=== PATIENT | male | born 1980 | race Caucasian/White ===

== ENCOUNTER 2016-06-01 17:55 | Emergency (ER) | payer SELFPAY ==
[~2016-06-01] VITALS: Ht 182.9 cm; Wt 68.9 kg
[~2016-06-01 17:55] MED LIST: SUCR1TAB29 PO
--- OUTSIDE RECORDS SUMMARY | 2016-06-01 17:59 | XMS REPORT | Continuity of Care Document ---
Author Author [facility] Organization [facility] Address Unknown Phone Unavailable Allergies Active Description Code Type Severity Reaction Onset Reported/Identified Relationship to Patient Clinical Status Yes No Known Allergies NKMA N/A N/A 02/10/2014 Medications Problems Date Dx Coded Attending Type Code Diagnosis Diagnosed By 02/10/2014 Zeenat Arthur Admitting 276.2 02/14/2014 Zeenat Arthur Final 275.2 DISORDERS OF MAGNESIUM METABOLISM 02/14/2014 Zeenat Arthur Final 276.2 ACIDOSIS 02/14/2014 Zeeant Arthur Final 276.51 Dehydration 02/14/2014 Zeenat Arthur Final 276.8 HYPOPOTASSEMIA 02/14/2014 Zeenat Arthur Final 287.5 THROMBOCYTOPENIA, UNSPECIFIED 02/14/2014 Zeenat Arthur Final 303.00 ACUTE ALCOHOLIC INTOXICATION IN ALCOHOLISM , UNSPECIFIED DRINKING BEHAVIOR 02/14/2014 Zeenat Arthur Final 401.9 UNSPECIFIED ESSENTIAL HYPERTENSION 02/14/2014 Zeenat Arthur Final 785.0 TACHYCARDIA, UNSPECIFIED 02/14/2014 Zeenat Arthur Reason 786.50 UNSPECIFIED CHEST PAIN 02/14/2014 Zeenat Arthur Final 790.4 NONSPECIFIC ELEVATION OF LEVELS OF TRANSAMINASE OR LACTIC ACID DEHYDROGENAS 02/14/2014 Zeenat Arthur Final 791.6 ACETONURIA 02/14/2014 Zeenat Arthur Final V04.81 Need for prophylactic vaccination and inoculation against influenza 06/19/2014 Final 305.00 ALCOHOL ABUSE, UNSPECIFIED DRINKING BEHAVIOR 06/19/2014 Final 535.30 ALCOHOLIC GASTRITIS, WITHOUT MENTION OF HEMORRHAGE 06/19/2014 Final 787.01 NAUSEA WITH VOMITING 06/19/2014 Reason 789.00 ABDOMINAL PAIN, UNSPECIFIED SITE Procedures Results Encounters ACCT No. Visit Date/Time Discharge Status Pt. Type Provider Facility Loc./Unit Complaint [id number] 02/10/2014 09:23:00 2013 16:15:00 DIS Outpatient Zeenat Arthur [facility] [id number] 06/19/2014 01:32:00 Document Registration
[2016-06-01 18:00] VITALS: Ht 182.9 cm; Wt 68.9 kg
--- OUTSIDE RECORDS SUMMARY | 2016-06-01 18:00 | XMS REPORT | Referral Summary ---
Author Organization Unknown Address Unknown Phone Unavailable Care Team Providers Care Engineering Design Supervisor Name Role Phone No PCP, Pt States Primary Care Physician [phone] Encounter VC Date(s): 06/19/14 - 06/19/14 [facility] [address] [place] [address] Final: ALCOHOLIC GASTRITIS, WITHOUT MENTION OF HEMORRHAGE Final: ALCOHOL ABUSE, UNSPECIFIED DRINKING BEHAVIOR Final: NAUSEA WITH VOMITING Discharge Diagnosis: Chronic alcohol abuse Discharge Diagnosis: Vomiting Discharge Diagnosis: Abdominal pain Discharge Diagnosis: Alcoholic gastritis Discharge Disposition: Home or Self Care Attending Physician: Dwight Mc DO Admitting Physician: Dwight Mc DO Vital Signs Most recent to 1 oldest [Reference Range]: Temperature Oral 37.0 degC [35.8-37.3 degC] (06/19/14 1:48 AM) Peripheral Pulse 95 bpm Rate [60-100 bpm] (06/19/14 6:44 AM) Heart Rate Monitored 90 bpm [60-100 bpm] (06/19/14 6:00 AM) Respiratory Rate 12 br/min [14-20 br/min] *LOW* (06/19/14 6:00 AM) Blood Pressure 149/105 mmHg [90-140/60-90 mmHg] *HI* (06/19/14 6:44 AM) Mean Arterial 106 mmHg Pressure, Cuff (06/19/14 6:00 AM) Most recent to 1 oldest [Reference Range]: SpO2 98 % (06/19/14 6:44 AM) Problem List Condition Effective Dates Status Health Status Informant Acute Active pain(Confirmed) ETOH Active patient abuse(Confirmed) HTN Active patient (hypertension)(Confi rmed) Ineffective coping Active (individual)(Confirm ed)1 Pancreatitis(Confirm Active patient ed) Current every day Active patient smoker(Confirmed) 1Problem added automatically by system based on initiation of Ineffective Coping Plan of Care Allergies, Adverse Reactions, Alerts No Known Allergies Medications folic acid 1 mg oral tablet 1 tabs, Oral, Daily, # 30 tabs, 0 Refill(s) Start Date: 02/12/14 Status: Ordered Habitrol 21 mg/24 hr transdermal film, extended release 1 patches, TransDermal, Daily, 0 Refill(s) Start Date: 02/12/14 Status: Ordered Levsin 0.125 mg oral tablet 1 tabs, Oral, QID, # 10 tabs, 0 Refill(s), SUPERVISING PHYS. DR. MCLAUGHLIN Start Date: 06/19/14 Status: Ordered Norvasc 10 mg oral tablet 1 tabs, Oral, Daily, # 30 tabs, 0 Refill(s) Start Date: 02/12/14 Status: Ordered Patch Removal 1 patches, TransDermal, Once, 0 Refill(s) Start Date: 02/12/14 Status: Ordered PriLOSEC 10 mg oral delayed release capsule 1 caps, Oral, Daily, # 30 caps, 0 Refill(s), SUPERVISING PHYSJosy MCLAUGHLIN Start Date: 06/19/14 Status: Ordered Therapeutic Multiple Vitamins with Minerals oral tablet Oral, Daily, 0 Refill(s) Start Date: 02/12/14 Status: Ordered Zofran 4 mg oral tablet 1 tabs, Oral, Once, # 10 tabs, 0 Refill(s) Start Date: 06/19/14 Status: Ordered Results Hematology Most recent to 1 oldest [Reference Range]: WBC [4.8-10.8 K/uL] 4.2 K/uL *LOW* (06/19/14 4:48 AM) RBC [4.60-6.20 M/uL] 4.51 M/uL *LOW* (06/19/14 4:48 AM) Hgb [14.0-18.0 13.9 gm/dL gm/dL] *LOW* (06/19/14 4:48 AM) Hct [42.0-52.0 %] 39.7 % *LOW* (06/19/14 4:48 AM) MCV [82.0-99.0 fL] 88.0 fL (06/19/14 4:48 AM) MCH [27.0-32.0 pg] 30.8 pg (06/19/14 4:48 AM) MCHC [32.0-36.0 35.0 gm/dL gm/dL] (06/19/14 4:48 AM) RDW [11.5-14.5 %] 12.8 % (06/19/14 4:48 AM) Platelet [150-400 142 K/uL K/uL] *LOW* (06/19/14 4:48 AM) MPV [9.4-12.3 fL] 9.2 fL *LOW* (06/19/14 4:48 AM) Immature 0.0 % Granulocytes (06/19/14 4:48 AM) [0.0-1.0 %] Neutrophils [51-75 54 % %] (06/19/14 4:48 AM) Lymphocytes [20-46 38 % %] (06/19/14 4:48 AM) Monocytes [4-11 %] 8 % (06/19/14 4:48 AM) Eosinophils [0-4 %] 1 % (06/19/14 4:48 AM) Basophils [0-2 %] 1 % (06/19/14 4:48 AM) Neutro Absolute 2.25 THOUS [1.90-7.00 THOUS] (06/19/14 4:48 AM) Lymph Absolute 1.57 THOUS [0.80-3.30 THOUS] (06/19/14 4:48 AM) [place] Absolute 0.33 THOUS [0.30-1.00 THOUS] (06/19/14 4:48 AM) Eos Absolute 0.02 THOUS [0.00-0.50 THOUS] (06/19/14 4:48 AM) Baso Absolute 0.02 THOUS [0.00-0.20 THOUS] (06/19/14 4:48 AM) Nucleated RBC 0.0 /100 WBC Automated [0 /100 (06/19/14 4:48 AM) WBC] Chemistry Most recent to 1 oldest [Reference Range]: Sodium Lvl [136-144 135 mEq/L mEq/L] *LOW* (06/19/14 4:48 AM) Potassium Lvl 3.7 mEq/L [3.6-5.1 mEq/L] (06/19/14 4:48 AM) Chloride [99-109 95 mEq/L mEq/L] *LOW* (06/19/14 4:48 AM) CO2 [22-32 mEq/L] 23 mEq/L (06/19/14 4:48 AM) AGAP [3-20] 17 (06/19/14 4:48 AM) BUN [4-20 mg/dL] 9 mg/dL (06/19/14 4:48 AM) Glucose Lvl [70-100 76 mg/dL mg/dL] (06/19/14 4:48 AM) Creatinine Lvl 0.80 mg/dL [0.64-1.27 mg/dL] (06/19/14 4:48 AM) eGFR [>60] >60 2 (06/19/14 4:48 AM) Calcium Lvl 8.8 mg/dL [8.6-10.0 mg/dL] (06/19/14 4:48 AM) Albumin Lvl [3.5-4.8 4.3 gm/dL gm/dL] (06/19/14 4:48 AM) Total Protein 6.9 gm/dL [6.1-7.9 gm/dL] (06/19/14 4:48 AM) Globulin [1.9-4.3 2.6 gm/dL gm/dL] (06/19/14 4:48 AM) ALT [17-63 unit/L] 178 unit/L *HI* (06/19/14 4:48 AM) AST [15-41 unit/L] 141 unit/L *HI* (06/19/14 4:48 AM) Alk Phos [26-104 58 unit/L unit/L] (06/19/14 4:48 AM) Bili Total [0.2-1.2 2.1 mg/dL 1 mg/dL] *HI* (06/19/14 4:48 AM) Troponin [<0.06 <0.05 ng/mL ng/mL] (06/19/14 4:48 AM) Lipase Lvl [8-48 27 unit/L unit/L] (06/19/14 4:48 AM) 1Result Comment: Naproxen, specifically the metabolite O-desmethylnaproxen, may cause spurious elevation in Total Bilirubin levels. 2Result Comment: Multiply eGFR results by 1.21 for race. Immunizations Vaccine Date Refusal Reason influenza virus vaccine, inactivated 02/10/14 influenza virus vaccine, live 02/23/10 Procedures No data available for this section Social History Social History Type Response Smoking Status Current every day smoker; Tobacco use per day: 1 Pack Assessment and Plan No data available for this section
[2016-06-01] MEDS ORDERED: CHLORDIAZEPOXIDE 25 MG CAPSULE PO ONE (18:15)
[2016-06-01] MEDS ORDERED: THIAMINE 100 MG, FOLIC ACID 1 MG, MULTI-VIT INF, ADULT 10 ML in NORMAL SALINE 1,000 ML IV ONE ×4 (18:15)
--- OUTSIDE RECORDS SUMMARY | 2016-06-01 18:19 | XMS REPORT | Continuity of Care Document ---
Author Author [facility] Organization [facility] Address Unknown Phone Unavailable Allergies Active Description Code Type Severity Reaction Onset Reported/Identified Relationship to Patient Clinical Status Yes No Known Allergies NKMA N/A N/A 02/10/2014 Medications Problems Date Dx Coded Attending Type Code Diagnosis Diagnosed By 02/10/2014 Zeenat Arthur Admitting 276.2 02/14/2014 Zeenat Arthur Final 275.2 DISORDERS OF MAGNESIUM METABOLISM 02/14/2014 Zeenat Arthur Final 276.2 ACIDOSIS 02/14/2014 Zeenat Arthur Final 276.51 Dehydration 02/14/2014 Zeenat Arthur [...] Status Pt. Type Provider Facility Loc./Unit Complaint [id number] 02/10/2014 09:23:00 2013 16:15:00 DIS Outpatient Zeenat Arthur [facility] [id number] 06/19/2014 01:32:00 Document Registration
[2016-06-01 18:27] LABS: BLOOD, URINE 1+ (NEGATIVE); COLOR,URINE YELLOW (YELLOW); LEUKOCYTE ESTERASE ,URINE NEGATIVE (NEGATIVE); NITRITE,URINE NEGATIVE (NEGATIVE); UROBILINOGEN,URINE 0.2 EU/DL (NORMAL)
[2016-06-01 18:30] LABS: BASOPHILS % (AUTO) 0.4 % (0-2); EOSINOPHILS # (AUTO) 0.1 T/MM3 (0-0.5); EOSINOPHILS % (AUTO) 1.2 % (0-4); HCT - HEMATOCRIT 41.7 % (41-53); HGB - HEMOGLOBIN 14.6 GM/DL (13.5-17.5); IMMATURE GRANULOCYTE # (AUTO) 0.01 T/MM3 (0.00-0.03); IMMATURE GRANULOCYTE % (AUTO) 0.1 % (0.0-0.5); LYMPHOCYTES # (AUTO) 0.9 T/MM3 (1-4.8); LYMPHOCYTES % (AUTO) 11.1 % (23-45); MEAN CORPUSCULAR HGB 32.8 UUG (26-34); MEAN CORPUSCULAR VOLUME 93.7 UM3 (80-100); MEAN PLATELET VOLUME 10.7 UM3 (9.4-12.4); MONOCYTES # (AUTO) 1.8 T/MM3 (0-0.8); MONOCYTES % (AUTO) 23.2 % (0-9.0); NEUTROPHILS #(AUTO)-ABSOLUTE 4.9 T/MM3 (1.8-7.7); RED BLOOD COUNT 4.45 M/MM3 (4.50-5.90); WBC - WHITE BLOOD COUNT 7.7 T/MM3 (4.5-11.0)
[2016-06-01] MEDS ORDERED: TRAZ300T2 PO (18:30)
[2016-06-01] MEDS ORDERED: AMLO10TA4 PO ×2 (18:30→22:57)
--- NOTE | 2016-06-01 18:30 | NUR ---
FAMILY CONTACT PT'S MOTHER ARRIVED IN LOBBY, PT REFUSES TO ALLOW MOTHER TO COME BACK BUT DOES GIVE RN PERMISSION TO SPEAK WITH HER. MOTHER STATES PT HAS A HX OF AGGRESSION/IRRIATION/AND HALLUCINATIONS WITH WITHDRAWL FROM ALCOHOL. NO OTHER PMHX.
[2016-06-01 18:33] LABS: BACTERIA,URINE NONE SEEN (NEGATIVE); MUCUS,URINE PRESENT; RBC,URINE 0-1 /HPF (0-3); SQUAMOUS EPITHELIAL CELL,UR NONE SEEN; WBC,URINE 0-1 /HPF (0-5)
[2016-06-01 18:34] LABS: ACETAMINOPHEN < 10 UG/ML (10-30); AMPHETAMINE SCREEN,URINE NEGATIVE; ANION GAP 15 MEQ/L (5-15); BARBITURATE SCREEN,URINE NEGATIVE; BENZODIAZEPINES SCREEN,URINE NEGATIVE; BUN/CREATININE RATIO 20 RATIO (6-26); CALCIUM 11.1 MG/DL (8.4-10.2); CANNABINOID SCREEN,URINE POSITIVE; CHLORIDE 98 MEQ/L (98-107); CO2 - CARBON DIOXIDE 28 MEQ/L (22-30); COCAINE SCREEN,URINE NEGATIVE; CREATININE 0.7 MG/DL (0.8-1.5); ETHANOL <10 MG/DL (<10); GLOMERULAR FILTRATION RATE 128; GLUCOSE 102 MG/DL (75-110); MAGNESIUM 1.3 MG/DL (1.6-2.3); METHADONE SCREEN, URINE NEGATIVE; METHAMPHETAMINE SCREEN, URINE NEGATIVE; OPIATE SCREEN,URINE NEGATIVE; PHENCYCLIDINE SCREEN,URINE NEGATIVE; PHOSPHORUS 4.5 MG/DL (2.5-4.5); POTASSIUM 3.3 MEQ/L (3.6-5); SALICYLATE < 1.0 MG/DL (2-20); SODIUM 141 MEQ/L (134-144); TRICYCLIC ANTIDEPRESSANT,URINE NEGATIVE
[2016-06-01 18:43] LABS: LIPASE 88 U/L (23-300)
--- NOTE | 2016-06-01 19:04 | NUR ---
XRAY PT TO XRAY PER COT.
--- NOTE | 2016-06-01 19:04 | ERPDOC ---
Departure Disposition Decision Date: Jun 01, 2016 Disposition Decision Time: 20:04 () Disposition: 01 DISCHARGED HOME, SELF-CARE Impression Impression () Impression: Primary Impression: Alcohol withdrawal hallucinosis Additional Impressions: Hypertension Hypertension type: other secondary hypertension Qualified Codes: I15.8 - Other secondary hypertension Contusion Encounter type: initial encounter Contusion area: thoracic wall Contusion of thoracic wall detail: back wall of thorax Laterality: unspecified laterality Qualified Codes: S20.229A - Contusion of unspecified back wall of thorax, initial encounter Alcoholic hepatitis without ascites Marijuana abuse Alcohol abuse Severity: Moderate () Condition: Improved Seen By: Physician only () Referrals: [facility] 1 Day Patient Instructions: Alcohol Withdrawal (ED) Problems/Meds/Labs Reviewed?: Yes Medications reviewed and manag: Yes () Additional Instructions: You are having hallucinations related to your alcohol withdrawal. Take the ativan as needed to help with anxiety, trouble sleeping, or hallucinations ( voices when you close your eyes). Take the clonidine as needed for high blood pressure; continue to take your other medications as previously prescribed. Follow up with [facility] as soon as possible for re-evaluation and treatment if needed. Follow up care ordered?: Yes Mental Status: Alert, Oriented () Scripts Lorazepam (Lorazepam) 1 Mg Tablet 1 TAB PO BID for 10 Days, #20 TAB 0 Refills Prov: KATHY LYNN MD 06/02/16 HPI - General Medical General Chief Complaint: Psychiatric Problems Stated Complaint: ALCOHOL DETOX Time Seen by Provider: 18:02 Source: patient Exam Limitations: no limitations () Time Seen by Provider: 13:35 (KATHY LYNN MD) HPI - General Medical Initial Comments 36yo man presents to the ER tonight with auditory hallucinations. Pt is a chronic alcoholic who quit drinking 4 days ago () Allergies: Coded Allergies: clonidine (Verified Allergy, Intermediate, HIVES, 06/02/16) hydrocodone (Verified Allergy, Unknown, ITCHING, 06/01/16) Past History Past Medical History Psychological: alcohol abuse () Surgical History Denies Surgeries () Family History Family PMH: FOUND: diabetes ( DO) Physical Exam General Vitals and Pain First Documented Vital Signs Date Time Temp Pulse Resp B/P Pulse Ox O2 Delivery O2 Flow Rate FiO2 06/01/16 18:00 98.4 122 18 207/124 100 Room Air (KATHY LYNN MD) Vitals and Pain Weight: Kilograms: 68.900 Height (feet): 6 Height (inches): 0 Triage Pain Scale: ( DO) Progress Results/Orders Orders Procedure Category Date Status Time Bmp - Basic Metabolic LAB 06/01/16 Complete Panel 18:02 Cbc W/Auto LAB 06/01/16 Complete Diff-Reflex Manual 18:02 Ethanol LAB 06/01/16 Complete 18:02 Magnesium LAB 06/01/16 Complete 18:02 Phosphorus LAB 06/01/16 Complete 18:02 Drug Screen LAB 06/01/16 Complete Urine-Test At [facility] 18:02 Acetaminophen LAB 06/01/16 Complete 18:02 Salicylate LAB 06/01/16 Complete 18:02 Lipase LAB 06/01/16 Complete 18:02 Iv Lock (Ed Only) EDM 06/01/16 Transmitted 18:02 Thiamine (Vit. B1)... PHA 06/01/16 Complete 18:15 Chlordiazepoxide PHA 06/01/16 Complete (Librium) 18:15 Nothing By Mouth (Ed EDM 06/01/16 Transmitted Only) 18:02 UA, LAB 06/01/16 Complete Dip&Micro(Complete) & 18:19 INR LAB 06/01/16 Complete Ribs Left With Ap RAD 06/01/16 Resulted Chest Thoracic Spine Comp RAD 06/01/16 Resulted W/Obliques Lumbar Spine 2-3 Views RAD 06/01/16 Resulted Clonidine (Catapres) PHA 06/01/16 Complete 19:15 Hepatic Panel LAB 06/01/16 Complete Normal Saline (Normal PHA 06/01/16 Complete Saline Iv) 19:15 (KATHY LYNN MD) Lab Results Laboratory Tests Test 06/01/16 18:19 White Blood Count 7.7T/MM3 Red Blood Count 4.45M/MM3 Hemoglobin 14.6GM/DL Hematocrit 41.7% Mean Corpuscular Volume 93.7UM3 Mean Corpuscular Hemoglobin 32.8UUG Mean Corpuscular Hemoglobin Concent 35.0GM/DL RDW Standard Deviation 43.4FL Platelet Count 93T/MM3 Mean Platelet Volume 10.7UM3 Immature Granulocyte % (Auto) 0.1% Neutrophils (%) (Auto) 64.0% Lymphocytes (%) (Auto) 11.1% Monocytes (%) (Auto) 23.2% Eosinophils (%) (Auto) 1.2% Basophils (%) (Auto) 0.4% Absolute Immature Granulocyte (auto 0.01T/MM3 Absolute Neutrophils (auto) 4.9T/MM3 Absolute Lymphocytes (auto) 0.9T/MM3 Absolute Monocytes (auto) 1.8T/MM3 Absolute Eosinophils (auto) 0.1T/MM3 Absolute Basophils (auto) 0.0T/MM3 Prothromb Time International Ratio 1.09 Urine Collection Type Cleancatch-midstream Urine Color Yellow Urine Turbidity Clear Urine pH 7.0 Urine Specific [place] 1.020 Urine Protein 2+ Urine Glucose (UA) Negative Urine Ketones Trace Urine Blood 1+ Urine Nitrite Negative Urine Bilirubin Negative Urine Urobilinogen 0.2EU/DL Urine Leukocyte Esterase Negative Urine RBC 0-1/HPF Urine WBC 0-1/HPF Urine Squamous Epithelial Cells None seen Urine Bacteria None seen Urine Mucus Present Urine Culture Indicated Cult not indicated Turbidity < 20 Sodium Level 141MEQ/L Potassium Level 3.3MEQ/L Chloride Level 98MEQ/L Carbon Dioxide Level 28MEQ/L Anion Gap 15MEQ/L Blood Urea Nitrogen 14.0MG/DL Creatinine 0.7MG/DL Glomerular Filtration Rate Calc 128 BUN/Creatinine Ratio 20RATIO Glucose Level 102MG/DL Calculated Osmolality 272MOSM/KG Calcium Level 11.1MG/DL Phosphorus Level 4.5MG/DL Magnesium Level 1.3MG/DL Total Bilirubin 2.30MG/DL Conjugated Bilirubin 0.00MG/DL Unconjugated Bilirubin 1.60MG/DL Icterus Index < 2 Aspartate Amino Transf (AST/SGOT) 261U/L Alanine Aminotransferase (ALT/SGPT) 226U/L Alkaline Phosphatase 94U/L Total Protein 8.4G/DL Albumin 5.1G/DL Globulin 3.3G/DL Albumin/Globulin Ratio 1.5RATIO Lipase 88U/L Chemistry Specimen Hemolysis < 15 Salicylates Level < 1.0MG/DL Urine Opiates Screen NegativeNG/ML Urine Oxycodone Screen NegativeNG/ML Urine Methadone Screen NegativeNG/ML Urine Propoxyphene Screen NegativeNG/ML Acetaminophen Level < 10UG/ML Urine Barbiturates Screen NegativeNG/ML Urine Tricyclic Antidepressants NegativeNG/ML Urine Phencyclidine Screen NegativeNG/ML Urine Amphetamines Screen NegativeNG/ML Urine Methamphetamines Screen NegativeNG/ML Urine Benzodiazepines Screen NegativeNG/ML Urine Cocaine Screen NegativeNG/ML Urine Cannabinoids Screen PositiveNG/ML Urine Drug Screen Confirmation Sent out Urine Drug Screen Information Pending Alcohol, Quantitative <10MG/DL (KATHY LYNN MD) Medications Current ED Medications Thiamine HCl/ Folic Acid/ Multivitamins/ Minerals/Sodium Chloride (Vit. B1/ Folate/ M.v.i. Adult/ Normal Saline IV) 1,011.2 ml @ 0 mls/hr O ONCE IV Last administered on 06/01/16 18:24; Start 06/01/16 at 18:15; Stop 06/01/16 at 18:16; Status DC Chlordiazepoxide HCl (Librium) 100 mg O ONCE PO Last administered on 06/01/16 18:26; Start 06/01/16 at 18:15; Stop 06/01/16 at 18:16; Status DC Clonidine HCl 0.2 mg 0.2 mg O ONCE PO Last administered on 06/01/16 19:52; Start 06/01/16 at 19:15; Stop 06/01/16 at 19:16; Status DC Sodium Chloride (Normal Saline IV) 1,000 ml @ 0 mls/hr Q0M ONCE IV Last administered on 06/01/16 19:35; Start 06/01/16 at 19:15; Stop 06/01/16 at 19:16; Status DC (KATHY LYNN MD) Progress Progress The discharge instructions state that he was to be given both clonidine and Ativan at discharge and the nurses note says that she gave him the scripts. He had a reaction to the clonidine (occurred within minutes of getting this drug) and had a second ER visit yesterday related to that. At that time they tore up both scripts because they didn't know which he reacted to. The Ativan had been given several hours earlier without apparent reaction. He is continuing to have problems. Will re-write the lorazepam to be dispensed to the patient and they are to monitor for any reaction. (KATHY LYNN MD) Xray Xray #1: Xray: CXR Portable Interpretation: Normal, Interpreted by Me Xray #2: Xray: Ribs L Interpretation: Abnormal (Possible fx of 6th rib - sent for overread. Overread states no fx.), Interpreted by Me Xray #3: Xray: T-Spine Interpretation: Abnormal (Possible vertebral height loss at T2, T3 - old injury), Interpreted by Me Xray #4: Xray: L-Spine Interpretation: Abnormal (Spondylisthesis of L1 on L2), Interpreted by [place] (EMMETT PASTOR DO) EMMETT PASTOR DO Jun 01, 2016 19:04 KATHY LYNN MD Jun 02, 2016 13:45 KATHY LYNN MD Jun 02, 2016 13:45
[2016-06-01 19:08] LABS: INR 1.09 (0.76-1.04); PROTHROMBIN TIME 11.9 SEC (9.31-12.49)
[2016-06-01 19:13] LABS: ALBUMIN 5.1 G/DL (3.5-5.0); ALBUMIN/GLOBULIN RATIO 1.5 RATIO (1.1-2.2); ALKALINE PHOSPHATASE 94 U/L (38-126); ALT (SGPT) 226 U/L (21-72); AST (SGOT) 261 U/L (17-59); TOTAL PROTEIN 8.4 G/DL (6.3-8.2)
[2016-06-01] MEDS ORDERED: CLONIDINE 0.2 MG TABLET PO ONE (19:15)
[2016-06-01] MEDS ORDERED: NORMAL SALINE 1,000 ML IV ONE (19:15)
--- NOTE | 2016-06-01 19:24 | NUR ---
XRAY PT RETURNED FROM XRAY PER COT.
--- NOTE | 2016-06-01 19:45 | NUR ---
PT STATUS PT STATES HE IS FEELING MUCH BETTER, NO LONGER HEARING NOISES, ANXIETY HAS DECREASED AND HE FEELS ONCE RELEASED HE WILL BE ABLE TO SLEEP WELL. PT DENIES ANY FURTHER COMPLAINTS OR QUESTIONS AT THIS TIME.
[2016-06-01] MEDS ORDERED: LORA-204 PO (20:10)
[2016-06-01] MEDS ORDERED: CLON0.2T PO (20:10)
--- NOTE | 2016-06-01 20:10 | NUR ---
PT STATUS/FAMILY CONTACT PT IS SITTING UPRIGHT ON COT USING [facility] PHONE TO CALL FAMILY. PT INITIALLY SOUNDS UPSET BUT QUICKLY CALMS. PT STATES HE CALLED HIS MOTHER TO UPDATE HER AND SAY HE WAS SORRY FOR THE WAY HE HAS BEEN TREATING HER. PT IS VERY CALM AND COOPERATIVE AT THIS TIME. PT STATES HE IS FEELING GREAT AND READY TO GO HOME. PT'S BLOOD PRESSURE HAS DECREASED, PT STATING NOW THAT HE HAS BEEN TAKING NORVASC 10 MG DAILY FOR YEARS BUT HAS NOT TAKEN IT IN SEVERAL MONTHS. PT STATES HE WILL MAKE AN APPOINTMENT WITH [facility] THIS WEEK TO GET BACK ON DAILY HTN MEDICATIONS.
--- NOTE | 2016-06-01 20:19 | NUR ---
CALLED FOR TRANSPORT CALLED PT'S CONTACT NUMBER AND THEY STATE THEY WILL COME TO [facility] SHORTLY.
--- NOTE | 2016-06-01 20:26 | NUR ---
AMBULATION PT AMBULATES TO RESTROOM WITHOUT DIFFICULITES AND DENIES ANY DISCOMFORT WITH URINATION.
[2016-06-01 21:01] VITALS: BP 148/96; PULSE 82; RESP 15; TEMP 97.4; O2SAT 98
--- NOTE | 2016-06-01 21:01 | NUR ---
DISMISSAL PT IS RELEASED WITH DISMISSAL INSTRUCTIONS AND PRESCRIPTIONS. PT VERBALIZED UNDERSTANDING OF INSTRUCTIONS AND DENIES ANY QUESTIONS AT THIS TIME. PT IS AMBULATORY TO THE LOBBY AND MET BY MONIKA FROM [facility] WHO STATES SHE WILL GIVE PT A RIDE HOME AND MAKE SURE PRESCRIPTIONS ARE FILL TOMORROW MORNING.
[2016-06-01] MEDS ORDERED: PRED20TA PO (22:57)
--- NOTE | 2016-06-02 08:28 | DI ---
Indication: ITS.REASON: fall several days ago with low back pain PROCEDURE: LUMBAR SPINE 2-3 VIEWS: Encounter: Initial Comparison: None Findings: Alignment of the lumbar spine is within normal limits. No acute fracture or subluxation seen. The vertebral body heights are maintained. Minimal questionable disk space narrowing at L4-L5. The remaining disk spaces are normal. Impression: No acute osseous abnormality. .
--- NOTE | 2016-06-02 08:31 | DI ---
Indication: ITS.REASON: Fall several days ago with ongoing back pain PROCEDURE: THORACIC SPINE COMP W/OBLIQUES: Encounter: Initial Comparison: None Findings: Alignment of the thoracic spine is within normal limits. There is height loss within an upper thoracic vertebra, probably T5 of indeterminate age. The remaining thoracic body heights are maintained. No significant degenerative changes. Impression: Age-indeterminate compression fracture of T5. .
--- NOTE | 2016-06-02 08:36 | DI ---
Indication: ITS.REASON: Fall with left rib pain PROCEDURE: RIBS LEFT WITH AP CHEST: Encounter: Initial Comparison: None FINDINGS: Chest: The lungs are clear. There is no abnormal airspace opacity, pleural effusion or pneumothorax identified. The heart size, pulmonary vasculature and mediastinum are within normal limits. AP and oblique views of the left ribs: There is an irregular appearance of the left sixth lateral rib only seen on the oblique view with some overlapping lucency. This is not confirmed on any of the other views. IMPRESSION: No acute cardiopulmonary abnormality. Possible left sixth lateral rib fracture versus artifact. There is a preliminary report by [facility]. .
[2016-06-02] MEDS ORDERED: LORA1TAB3 PO (13:37)
== END 2016-06-01 21:01 | disposition home or self-care (01) ==
LOC: ED 17:55
DX: F10.239 Alcohol dependence with withdrawal, unspecified (principal); F10.251 Alcohol dependence with alcohol-induced psychotic disorder with hallucinations; K70.10 Alcoholic hepatitis without ascites; F12.10 Cannabis abuse, uncomplicated; Y90.9 Presence of alcohol in blood, level not specified; I15.8 Other secondary hypertension; S20.229A Contusion of unspecified back wall of thorax, initial encounter; X58.XXXA Exposure to other specified factors, initial encounter; Y93.9 Activity, unspecified; Y92.9 Unspecified place or not applicable; Y99.8 Other external cause status
CPT/HCPCS: 80048; 80076; 80306; 80307; 81001; 83690; 83735; 84100; 85025; 85610

== ENCOUNTER 2016-06-01 21:43 | Emergency (ER) | payer SELFPAY ==
[~2016-06-01] VITALS: Ht 182.9 cm; Wt 69.7 kg
[~2016-06-01 21:43] MED LIST changes: +AMLO10TA4 PO; +CLON0.2T PO; +LORA-204 PO; +TRAZ300T2 PO
[2016-06-01 21:46] VITALS: Ht 182.9 cm; Wt 69.7 kg
--- OUTSIDE RECORDS SUMMARY | 2016-06-01 21:46 | XMS REPORT | Continuity of Care Document ---
Author Author [facility] Organization [facility] Address Unknown Phone Unavailable Allergies Active Description [...] Status Pt. Type Provider Facility Loc./Unit Complaint [id number] 02/10/2014 09:23:00 2013 16:15:00 DIS [facility]at [facility] [id number] 06/19/2014 01:32:00 Document Registration
--- NOTE | 2016-06-01 21:50 | NUR ---
PROVIDER ELBA BEVERLY APRN IN ROOM WITH PT.
[2016-06-01] MEDS ORDERED: DiphenhydrAMINE 50 MG/ML INJECTION IV ONE (22:00)
--- OUTSIDE RECORDS SUMMARY | 2016-06-01 22:00 | XMS REPORT | Continuity of Care Document ---
Author Author [facility] Organization [facility] Address Unknown Phone Unavailable Allergies Active Description [...] Status Pt. Type Provider Facility Loc./Unit Complaint [id number] 02/10/2014 09:23:00 2013 16:15:00 DIS Outpatient Zeenat Arthur [facility] [id number] 06/19/2014 01:32:00 Document Registration
--- NOTE | 2016-06-01 22:04 | ERPDOC ---
Departure Disposition Decision Date: Jun 01, 2016 Disposition Decision Time: 22:54 Disposition: 01 DISCHARGED HOME, SELF-CARE Impression Impression Impression: Primary Impression: Allergic reaction Encounter type: initial encounter Qualified Codes: T78.40XA - Allergy, unspecified, initial encounter Severity: Moderate Condition: Stable Seen By: Mid-level only Patient Instructions: General Allergic Reaction (ED) Problems/Meds/Labs Reviewed?: Yes Medications reviewed and manag: Yes Additional Instructions: Take the Prednisone as prescribed to help with the hives. I do want you to take some Benadryl every 6 hours as needed for the itching and hives. The rash may come and go in intensity over the next few days but return to ER with any shortness of breath, sore throat, or difficulty swallowing/breathing. Follow up with [facility] this week for reevaluation. Follow up care ordered?: Yes Mental Status: Alert Scripts Prednisone (Prednisone) 20 Mg Tablet 20 MG PO PER COMMENTS, #15 TAB 0 Refills Take 3 tablets by mouth for 2 days, then 2 tablets by mouth daily for 3 days, then 1 tablet by mouth daily for 3 days then stop. Prov: VALENTE BEVERLY APRN 06/01/16 Amlodipine Besylate (Norvasc) 10 Mg Tablet 10 MG PO DAILY, #7 TAB 0 Refills Prov: VALENTE BEVERLY APRN 06/01/16 HPI - General Medical General Stated Complaint: RASH/DIZZY/WEAK Time Seen by Provider: 21:50 Source: patient Exam Limitations: no limitations HPI - General Medical Initial Comments He was evaluated in ER earlier today for alcohol withdrawal and auditory hallucinations. Was noted to be hypertensive and was given a dose of Catapress here in ER. Was also given a banana bag as well as Librium po. Was sent home with Rx for Ativan and Catapress. He had not filled the Ativan however yet as the pharmacies were closed when he was discharged. [facility] and noted that he has hives on his arms and chest and back. He has not had any sore throat or wheezing or SOA. Has not had any ETOH since the weekend. Occurred At: home Onset: Rapid Duration: 1 hr Severity: moderate Associated Symptoms: rash (on bilateral arms and chest), DENIES: chest pain, cough, diaphoresis, fever/chills, headaches, loss of appetite, malaise, nausea/ vomiting, seizure, shortness of breath, syncope, weakness Hx of Similar Symptoms: No Allergies: Coded Allergies: hydrocodone (Verified Allergy, Unknown, ITCHING, 06/01/16) Past History Past Medical History Psychological: alcohol abuse Surgical History Denies Surgeries Family History Family PMH: FOUND: diabetes Social History Smoking Status: Never smoker Substance Use Type: does not use Alcohol Intake: none Review of Systems Constitutional Constitutional: DENIES: chills, dizziness, fatigue, fever, weakness Cardiovascular Cardiac: DENIES: chest pain, orthopnea Rhythm/Rate: DENIES: irregular beat, palpitations Pulmonary Respiratory: DENIES: cough, dyspnea, tachypnea GI Upper Abdomen: DENIES: nausea, pain, vomiting Lower Abdomen: DENIES: constipation, diarrhea, pain General: DENIES: dysuria, frequency, urgency Integumentary Skin: rash Neurological General: DENIES: headache, numbness, tingling, weakness Physical Exam General General Nourishment: well nourished, well developed, appears stated age, no acute distress, adult General Body Habitus: well groomed Vitals and Pain First Documented Vital Signs Date Time Temp Pulse Resp B/P Pulse Ox O2 Delivery O2 Flow Rate FiO2 06/01/16 21:46 98.9 118 18 171/118 100 06/01/16 21:46 Room Air Weight: Kilograms: Height (feet): 6 Height (inches): 0 Triage Pain Scale: RN VS reviewed by Provider: Yes Normal Exams: Neck: Full range of motion, without adenopathy, JVD, bruits or thyromegaly Chest/Resp: Clear all milian, with good airflow, and symmetry bilaterally CV: Regular rate and rhythm, without murmur or gallop, Pulses 2+ all extremities, capillary refill, <2 seconds all ext., no pedal edema noted Abdomen: Bowel sounds positive, soft, non-tender, non-distended, no hepatosplenomegaly, masses or bruits noted Lymphatic: No lymphadenopathy, or lymphedema noted Neurologic: Patient is alert, and oriented Psychiatric: Patient exhibits, appropriate attention, emotion and affect ENMT (brief) ENMT Brief: FOUND: TM clear, TM good light reflex, ear canals clear, mucosa moist, normal dentition, normal tonsils, other (No swelling noted in posterior pharynx), NOT FOUND: lesions, nasal erythema, nasal exudate, nasal swelling, petechiae, pharnyx erythema, tonsillar deviation Respiratory (brief) Respiratory: NOT FOUND: wheezes Integumentary (brief) Integumentary Brief: FOUND: rash (He does have hives on his bilateral arms, chest, and back) Differential Diagnoses Considering: Other (anaphylaxis, allergic reaction, urticaria) Progress Results/Orders Orders Procedure Category Date Status Time Iv Lock (Ed Only) EDM 06/01/16 Transmitted 21:54 Cbc W/Auto LAB 06/01/16 Complete Diff-Reflex Manual Bmp - Basic Metabolic LAB 06/01/16 Complete Panel Diphenhydramine PHA 06/01/16 Complete (Benadryl) 22:00 Methylprednisolone PHA 06/01/16 Complete Sod Succ (Solu-Medrol 22:00 Lab Results Laboratory Tests Test 06/01/16 22:08 White Blood Count 6.0T/MM3 Red Blood Count 4.08M/MM3 Hemoglobin 13.4GM/DL Hematocrit 38.3% Mean Corpuscular Volume 93.9UM3 Mean Corpuscular Hemoglobin 32.8UUG Mean Corpuscular Hemoglobin Concent 35.0GM/DL RDW Standard Deviation 43.3FL Platelet Count 93T/MM3 Mean Platelet Volume 10.4UM3 Immature Granulocyte % (Auto) 0.2% Neutrophils (%) (Auto) 54.5% Lymphocytes (%) (Auto) 23.0% Monocytes (%) (Auto) 19.8% Eosinophils (%) (Auto) 2.2% Basophils (%) (Auto) 0.3% Absolute Immature Granulocyte (auto 0.01T/MM3 Absolute Neutrophils (auto) 3.2T/MM3 Absolute Lymphocytes (auto) 1.4T/MM3 Absolute Monocytes (auto) 1.2T/MM3 Absolute Eosinophils (auto) 0.1T/MM3 Absolute Basophils (auto) 0.0T/MM3 Turbidity < 20 Sodium Level 142MEQ/L Potassium Level 3.2MEQ/L Chloride Level 102MEQ/L Carbon Dioxide Level 27MEQ/L Anion Gap 13MEQ/L Blood Urea Nitrogen 11.0MG/DL Creatinine 0.7MG/DL Glomerular Filtration Rate Calc 128 BUN/Creatinine Ratio 16RATIO Glucose Level 124MG/DL Calculated Osmolality 273MOSM/KG Calcium Level 9.9MG/DL Icterus Index < 2 Chemistry Specimen Hemolysis < 15 Medications Current ED Medications Diphenhydramine HCl (Benadryl) 25 mg O ONCE IV Last administered on 06/01/16 22:15; Start 06/01/16 at 22:00; Stop 06/01/16 at 22:01; Status DC Methylprednisolone Sodium Succinate (Solu-Medrol) 125 mg O ONCE IV Last administered on 06/01/16 22:15; Start 06/01/16 at 22:00; Stop 06/01/16 at 22:01; Status DC Progress Progress His hives are very much improved. Is ready to go home. Will have him not fill the Ativan or the Catapress, Rxs from earlier visit were returned and shredded. I am not sure which medication from earlier was the trigger for the allergic reactions. He has taken Norvasc in the past for his blood pressure so will give him a Rx for this as well as prednisone. Benadryl as needed for the itching. Will have him follow up this week for reevaluation with [facility]. VALENTE BEVERLY APRN Jun 01, 2016 22:04
[2016-06-01 22:23] LABS: BASOPHILS % (AUTO) 0.3 % (0-2); EOSINOPHILS # (AUTO) 0.1 T/MM3 (0-0.5); EOSINOPHILS % (AUTO) 2.2 % (0-4); HCT - HEMATOCRIT 38.3 % (41-53); HGB - HEMOGLOBIN 13.4 GM/DL (13.5-17.5); IMMATURE GRANULOCYTE # (AUTO) 0.01 T/MM3 (0.00-0.03); IMMATURE GRANULOCYTE % (AUTO) 0.2 % (0.0-0.5); LYMPHOCYTES # (AUTO) 1.4 T/MM3 (1-4.8); MEAN CORPUSCULAR HGB 32.8 UUG (26-34); MEAN CORPUSCULAR VOLUME 93.9 UM3 (80-100); MEAN PLATELET VOLUME 10.4 UM3 (9.4-12.4); MONOCYTES # (AUTO) 1.2 T/MM3 (0-0.8); MONOCYTES % (AUTO) 19.8 % (0-9.0); NEUTROPHILS #(AUTO)-ABSOLUTE 3.2 T/MM3 (1.8-7.7); NEUTROPHILS % (AUTO) 54.5 % (33-66); RED BLOOD COUNT 4.08 M/MM3 (4.50-5.90)
[2016-06-01 22:33] LABS: ANION GAP 13 MEQ/L (5-15); BUN/CREATININE RATIO 16 RATIO (6-26); CALCIUM 9.9 MG/DL (8.4-10.2); CHLORIDE 102 MEQ/L (98-107); CO2 - CARBON DIOXIDE 27 MEQ/L (22-30); CREATININE 0.7 MG/DL (0.8-1.5); GLOMERULAR FILTRATION RATE 128; GLUCOSE 124 MG/DL (75-110); POTASSIUM 3.2 MEQ/L (3.6-5); SODIUM 142 MEQ/L (134-144)
--- NOTE | 2016-06-01 22:49 | NUR ---
PT STATUS PT IS RESTING ON COT, EASILY WOKEN BUT REPORTS HE IS VERY SLEEPY. HIVES TO ARMS AND CHEST HAVE GREATLY DIMINISHED. PT DENIES ANY FURTHER ITCHING, DENIES ANY DIFFICULTY BREATHING OR SWALLOWING. PT HAS CALL LIGHT IN REACH AND SKILLED NURSING STAFF IN ROOM WITH PT.
[2016-06-01] MEDS ORDERED: PRED20TA PO (22:57)
[2016-06-01] MEDS ORDERED: AMLO10TA4 PO (22:57)
--- NOTE | 2016-06-01 23:10 | NUR ---
PROVIDER ELBA BEVERLY APRN IN ROOM WITH PT.
--- NOTE | 2016-06-01 23:15 | NUR ---
PT STATUS PT HAS NO FURTHER SIGNS OF HIVES AT THIS TIME, SHOWING NO OUTWARD SIGNS OF ALLERGIC REACTION, BBS CLEAR WITH ECR, NO WHEEZES. PT REPORTS BEING VERY TIRED BUT HAS NO OTHER COMPLAINTS. [facility] STAFF REMAINS WITH PT.
[2016-06-01 23:28] VITALS: BP 149/92; PULSE 88; RESP 16; TEMP 98; O2SAT 100
--- NOTE | 2016-06-01 23:28 | NUR ---
DISMISSAL PT IS RELEASED WITH DISMISSAL INSTRUCTIONS AND 2 NEW PRESCRIPTIONS. PT HAS TURNED IN PRIOR PRESCRIPTIONS AND UNDERTAND THOSE ARE NOT TO BE FILLED. PT IS AMBULATORY ALONG WITH RETIREMENT STAFF TO LOBBY WITHOUT DIFFICULITES. STAFF WITH DRIVE PT HOME. PT VERBALIZED UNDERSTANDING OF INSTRUCTIONS, RX AND OTC BENADRYL USE AND DENIES ANY FURTHER QUESTIONS.
--- NOTE | 2016-06-02 06:10 | NUR ---
CATAPRES UPDATED TO ALERGY LIST CATAPRES UPDATED TO ALERGY LIST AT THIS TIME.
[2016-06-02] MEDS ORDERED: LORA1TAB3 PO (13:37)
== END 2016-06-01 23:28 | disposition home or self-care (01) ==
LOC: ED 21:43
DX: L27.0 Generalized skin eruption due to drugs and medicaments taken internally (principal); T50.905A Adverse effect of unspecified drugs, medicaments and biological substances, initial encounter; Y92.099 Unspecified place in other non-institutional residence as the place of occurrence of the external cause
CPT/HCPCS: 80048; 85025